=== PATIENT | female | born 1985 | race Caucasian/White ===

== ENCOUNTER → 2018-08-04 21:32 | Outpatient (CLI) | payer BC | END | disposition home or self-care (01) | LOC: D.LABREF 21:32 | DX: Z02.9 Encounter for administrative examinations, unspecified (principal) ==

== ENCOUNTER → 2018-08-11 10:18 | Outpatient (CLI) | payer BC | END | disposition home or self-care (01) | LOC: D.LAB 10:18 | DX: K61.0 Anal abscess (principal) ==

== ENCOUNTER → 2018-09-05 20:29 | Outpatient (CLI) | payer BC | END | disposition home or self-care (01) | LOC: D.LABREF 20:29 | DX: K82.8 Other specified diseases of gallbladder (principal) ==

== ENCOUNTER → 2018-10-13 15:49 | Outpatient (CLI) | payer BC | END | disposition home or self-care (01) | LOC: D.CT 15:49 | DX: K52.9 Noninfective gastroenteritis and colitis, unspecified (principal); R10.9 Unspecified abdominal pain ==

== ENCOUNTER 2018-11-29 05:18 | Day surgery (SDC) | payer BC ==
[~2018-11-29] VITALS: Ht 167.6 cm; Wt 97.1 kg
[2018-11-29 05:42] LABS: HEMATOCRIT 38.6 % (36.0-48.0); HEMOGLOBIN 12.8 g/dL (12-16); MCH 28.5 pg (26.0-34.0); MCHC 33.2 g/dL (31.0-37.0); MEAN PLATELET VOLUME 9.5 fL (7.4-10.4); RBC 4.49 10x6/uL (4.00-5.40); RDW 13.8 % (11.5-14.5); WBC 5.7 10x3/uL (4.8-10.8)
[2018-11-29 06:51] VITALS: BP 141/92; Ht 167.6 cm; Wt 97.1 kg
[2018-11-29 07:05] LABS: HCG URINE NEGATIVE (NEGATIVE)
--- NOTE | 2018-11-29 08:32 | NUR ---
PATIENT HAS RIGHT SHOULDER IMPLANTS, ARM POSITIONED BEFORE ANESTHESIA FOR COMFORT AND ANY IMPINGEMENTS, [place].
[2018-11-29] MEDS ORDERED: HYDROCODON-ACE1 EAC7 PO (08:37)
== END 2018-11-29 11:48 | disposition home or self-care (01) ==
LOC: D.OPS 05:18 → D.PAN 08:00 → D.OPS 11:48
PROVIDERS: Anesthesiology; Surgery
DX: K82.8 Other specified diseases of gallbladder (principal); Z01.812 Encounter for preprocedural laboratory examination